=== PATIENT | male | born 1975 | race African-American/Black ===

== ENCOUNTER 2017-07-26 10:56 | Inpatient (IN) | payer OTHER ==
[~2017-07-26] VITALS: Ht 188 cm; Wt 82.7 kg
[2017-07-26 12:19] VITALS: BP 160/98
[2017-07-26 13:54] LABS: ABSOLUTE EOSINOPHILS 0.2 thou/uL (0.0-0.7); ABSOLUTE LYMPHOCYTES 1.5 thou/uL (0.8-5.3); ABSOLUTE MONOCYTES 0.8 thou/uL (0.0-1.2); ABSOLUTE NEUTROPHILS 7.7 thou/uL (1.6-8.1); BASOPHILS 0.3 %; EOSINOPHILS 1.5 %; HEMATOCRIT 39.3 % (42.0-52.0); HEMOGLOBIN 12.8 gm/dL (14.0-18.0); LYMPHOCYTES 14.8 %; MCH 27.7 pg (26.0-34.0); MCHC 32.6 g/dL (28.0-37.0); MPV 9.3 fl. (7.2-11.1); NUCLEATED RBCS 0 /100WBC; PLATELET COUNT* 359 thou/uL (150-400); POLYS 75.4 %; RBC 4.62 mil/uL (4.50-6.00); RDW-CV 12.8 % (10.5-14.5); WBC 10.2 thou/uL (4.0-11.0)
[2017-07-26 14:04] LABS: APTT 32.7 Seconds (25.0-31.3); PROTIME 9.4 Seconds (9.20-11.50)
[2017-07-26 14:07] LABS: CALCIUM 9.5 mg/dL (8.5-10.1); POTASSIUM 4.9 mmol/L (3.5-5.1); TOTAL BILIRUBIN 0.4 mg/dL (<0.1-1.0); TOTAL PROTEIN 8.2 g/dL (6.4-8.2)
[2017-07-26 14:52] LABS: ESR (SEDRATE) 80 mm/hr (0-15)
--- NOTE | 2017-07-26 15:24 | NUR ---
WOUND CARE NOTE: CONSULT RECEIVED FOR LEFT FOOT WOUND. PATIENT PRESENTS WITH A FULL THICKNESS ULCERATION TO THE RIGHT FOOT. LATERAL/PLANTAR SURFACE. WOUND MEASURES 1.5X1.5X1. FOUL ODOR NOTED. ZORAIDA-WOUND IS MACERATED. WOUND BED WITH 100% YELLOW SLOUGH, ADHERENT. 2+ PEDAL PULSES. WOUND CLEANSED WITH WOUND CLEANSER, PATTED DRY. PACKED WITH AQUACEL AG AND COVERED WITH ABD. SECURED WITH KERLIX. PATIENT TOLERATED DRESSING CHANGE WELL. EDUCATED ON IMPORTANCE OF KEEPING BLOOD SUGAR CONTROLLED, PATIENT STATES HIS BLOOD SUGAR IS UP AND DOWN. EDUCATED ON IMPORTANCE OF NUTRITION FOR WOUND HEALING, COMMUNICATED UNDERSTANDING. EDUCATED ON KEEPING OFF FOOT, COMMUNICATED UNDERSTANDING. EDUCATED ON DRESSING SELECTION, COMMUNICATED UNDERSTANDING. RECOMMEND TIGHT BLOOD GLUCOSE CONTROL OFFLOAD WOUND, HEEL WEIGHT BEARING FOR TRANSFERS ONLY ENCOURAGE GOOD NUTRITION AND HYDRATION DAILY DRESSING CHANGES
--- NOTE | 2017-07-26 16:14 | NUR ---
PATIENT DIRECT ADMIT FROM DR. GREEN'S PODIATRY OFFICE. ALERT AND ORIENTED X 4. PATIENT POOR HISTORIAN FOR MEDICATIONS AND MEDICAL HISTORY. IV PLACED IN INFUSION TO RIGHT AC, LABS RETRIEIVED WHILE IN INFUSION. PHOTO TAKEN OF LEFT FOOT WOUND, DRESSING PLACED PER WOUND CARE. CULTURES OBTAINED PER ORDERS. PATIENT DID SHOWER UPON ARRIVAL.PATIENT NPO AFTER MIDNIGHT FOR ANY IMPENDING PROCEDURES. IV ABX INFUSING ORDERED. ORIENTED TO CALL LIGHT, CALL LIGHT WITHIN REACH. WILL CONTINUE TO MONITOR.
[2017-07-26] MEDS ORDERED: LANTUS100 UNIT/M SUBQ (16:53)
[2017-07-26] MEDS ORDERED: HUMALOG100 UNIT/1 SUBQ (16:53)
[2017-07-26 16:57] VITALS: BP 138/98
[2017-07-26 20:20] VITALS: BP 146/95
--- NOTE | 2017-07-27 05:07 | NUR ---
PT SLEPT MOST OF SHIFT. ASSESSMENT DOCUMENTED. MEDS GIVEN PER E-MAY. IV PATENT. PT STATED LEFT FOOT STARTED HURTING, TRAMADOL GIVEN PER E-MAR. PT STATED NO RELIEF, NOTIFIED, ALTERNATIVE PAIN MEDICATION ORDERS RECIEVED. PT REMAINED NPO AFTER 0000. EKG COMPLETED. PREOP CHECKLIST IN CHART. WILL CONTINUE WITH PLAN OF CARE.
[2017-07-27 05:42] VITALS: BP 132/83
[2017-07-27 06:35] VITALS: BP 132/83
[2017-07-27 09:45] VITALS: BP 133/88
--- NOTE | 2017-07-27 11:31 | EKG ---
[place] [address] ELECTROCARDIOGRAM REPORT Name: MARCI FUENTES Room: [address] ADM IN M.R.#: [id number] Admission: 07/26/17 Attend Phys: Marci Patterson MD Discharge: Date of : 73 Report #: [id number] THIS REPORT FOR: //name// [facility] Test Date: 2017-07-26 Test Time: 22:10:16 Pat Name: MARCI FUENTES Department: Room: [address] Gender: M Kit Assembler: BARBARA : 1975 Requested By: Chris Bray Order Number: [id number] Anayeli MD: Dominic Monsivais Measurements Intervals [place] Rate: 113 P: 62 MA: 156 QRS: 30 QRSD: 84 T: 47 QT: 336 QTc: 461 Interpretive Statements Sinus tachycardia Probable anteroseptal infarct, old Minimal ST elevation, inferior leads No previous ECG available for comparison Electronically Signed On 07-27-2017 11:31:44 CDT by Dominic Monsivais [email or web address] <ELECTRONICALLY SIGNED> By: Dominic Monsivais MD, [facility] 07/27/17 1131 09 09 Dominic Monsivais MD, FACC /EPI
[2017-07-27 15:07] LABS: GLYCOHEMOGLOBIN (HGB A1C) 11.3 % (4.8-5.6)
--- NOTE | 2017-07-27 16:13 | NUR ---
PT.IN SURGERY THIS AM. NOW GETTING PICC LINE. CULTURES PENDING. FAXED FACE SHEET AND MED LIST TO [facility] [phone] TO CHECK INSURANCE BENEFITS FOR IVAB AND LEFT MESSAGE ON [phone].
--- NOTE | 2017-07-27 16:18 | NUR ---
PATIENT HAD LEFT 5TH METATARSAL AND TOE AMPUTATION THIS AM. VITALS STABLE UPON RETURN. INSULIN GIVEN WITH MEALS WHEN REQUIRED. PRN MORPHINE AND VICODIN GIVEN PER FOR PAIN. LEFT FOOT DRESSING INTACT AND ELEVATED ORDERED. IV ABX INFUSED ORDERED. PICC LINE ORDERED THIS AM AND BEING PLACED AT THIS TIME IN INFUSION. PATIENT TRANSFERRED DOWN TO ROOM 101. REPORT GIVEN TO [facility].
--- NOTE | 2017-07-27 16:50 | NUR ---
CONSULTED TO PLACE PICC FOR NURSE LICENSED PRACTICAL ATB FOR FOOT INFECTION. ORDER AND CONSENT NOTED. SPOKE WITH PT ABOUT RISK AND BENNIF[place]. VOICED UNDERSTANDING AND AGREED. RIGHT UPPER ARMM NOTED TO HAVE IV THAT WAS SWOLLEN AND RED WITH SKIN TIGHT. IV REMOVED. ASSESSED ARM ABOVE INFILTRATION. ATTEMPT TO PLACE PICC UNSUCCESSFUL. LEFT UPPER ARM ASSESSED AND LEFT BASILIC VEIN IDENTIFIED AND NOTED TO BE WIDLEY PATENT. SINGLE LUMAN 4FR POWER PICC PLACED PER HOSPITAL POLICY. PICC TRIMMED AT 48CM AND ADVANCED TO 45CM LEAVING 3CM EXTERNAL. LINE CLEARED WITH SHERLOCK 3CG, SECURED AND RELEASED FOR IMMEDIATE USE. PRIMARY NURSING AWARE.
--- NOTE | 2017-07-27 18:36 | NUR ---
RECEIVED PATIENT THIS EVENING S/P PICC LINE PLACEMENT TO LEFT UPPER ARM. AGREE WITH PRIOR ASSESSMENT, NO ACUTE DISTRESS, TOLERATING DIET WELL, GLUCOSE MANAGED WITH INSULIN, MARYANNE IV ABT WITHOUT ADR NOTED. LEFT FOOT WOUND SITE WITH DRESSING C/D/I. CALL LIGHT IN REACH, FAMILY AT BEDSIDE, CONT POC.
[2017-07-27 21:35] VITALS: BP 106/70
[2017-07-27 23:45] VITALS: BP 109/63
[2017-07-28 03:45] VITALS: BP 109/63
--- NOTE | 2017-07-28 05:07 | NUR ---
PATIENT ALERT AND ORIENTED. VITALS STABLE. RA. DENIES THE NEED FOR PAIN MEDICATION DURING MY SHIFT. VOMITED X 1, NOT SEEN BE NURSE, ZOFRAN GIVEN WHICH WAS EFFECTIVE. LEFT FOOT DRESSING C/D/I, ELEVATED ON PILLOW. NO SIGNS OF ANY ADVERSE REACTIONS TO ANTIBIOTIC THERAPY. HOURLY ROUNDS. BED ALARM IN USE. NURSING WILL CONTINUE TO MONITOR.
[2017-07-28 08:00] VITALS: BP 113/65
--- NOTE | 2017-07-28 09:25 | CON ---
[address] [address] CONSULTATION Name: MARCI FUENTES Room: [address] IN ..#: [id number] Admission: 07/26/17 Attend Phys: Marci Patterson MD Discharge: Date of : 73 Report #: [id number] THIS REPORT FOR: //name// CC: Chris Patterson NO PCP DATE OF SERVICE: 07/27/2017 INFECTIOUS DISEASE CONSULTATION ATTENDING PHYSICIAN: Dr. Grider. REASON FOR EVALUATION: Left foot osteomyelitis involving the fifth metatarsal. HISTORY OF PRESENT ILLNESS: Chart reviewed, patient examined. This 41-year-old gentleman with diabetes mellitus type 2, although he is insulin requiring, diagnosed roughly 20 years ago, not clear if he has complications related to peripheral neuropathy, although he has had previous fifth toe amputation due to chronic infection. Over the course of the last 2-3 weeks, he had increasing inflammation noted at the site, had some blood sugar variability, preop suggested osteomyelitis. He has returned and seen postop. Cultures are pending. Gram stain did show gram-positive cocci on previous culture, awaiting growth perhaps ID and susceptibility. He has noted some weight loss that he cannot account for the last couple of months. He denies significant pulmonary or gastrointestinal related complaints. He does admit to some anorexia. ALLERGIES: None known. CURRENT MEDICATIONS: Include hydrocodone, morphine, lisinopril, vancomycin, insulin and Zosyn. PAST MEDICAL HISTORY: Diabetes mellitus type 2 diagnosed 20 years ago, insulin requiring and hypertension. SOCIAL HISTORY: Nonsmoker, no ethanol and no illicit drug use. FAMILY HISTORY: Noncontributory. REVIEW OF SYSTEMS: As above. PHYSICAL EXAMINATION: GENERAL: Pleasant, alert, mildly diminished affect, is in mild distress. VITAL SIGNS: Temperature 98, pulse 87, respirations 19, blood pressure 132/83. SKIN: Warm, dry, no rashes. HEENT: Otherwise, [place] [address] CONSULTATION Name: MARCI FUENTES Room: [address]#: [id number] Admission: 07/26/17 Attend Phys: Marci Patterson MD Discharge: Date of : 73 Report #: [id number] NECK: Supple. LUNGS: Clear breath sounds. HEART: Regular. I do not appreciate a murmur. ABDOMEN: Soft, nontender and nondistended. Operative dressing in place. LABORATORY DATA: Blood cultures sterile thus far. Preop x-ray of the left foot showed destructive change of the fifth metatarsal head and proximal fifth phalanx consistent with osteomyelitis. Gram stain showed gram-positive cocci in moderate amounts. Cultures are pending. CBC: White count of 10.2, H and H 12.8 and 39.3 and platelets of 359. Sed rate of 80. CRP of 134.8. ASSESSMENT: Osteomyelitis involving the left foot in a patient with longstanding diabetes mellitus, previous issues with deep foot infections. Certainly, the evidence favors osteomyelitis diagnosis. We will continue empiric therapy, ideally pair down to a single agent on discharge. Will likely need long-term parenteral therapy. We will await pathology results as well. Discussed about his weight loss. It is not clear to me precisely and may need additional workup. <ELECTRONICALLY SIGNED> By: Rogers Guzman MD 07/28/17 0925 1040 [id number] Guzman MD /nt
[2017-07-28 16:06] VITALS: BP 107/70
--- NOTE | 2017-07-28 18:32 | NUR ---
RESUMED CARE THIS AM. DISCOMFORT MANAGED WELL WITH ORAL MEDICATION. GLUCOSE MANAGED WELL WITH INSULIN AND DIET. TURNED FROM SIDE TO SIDE FREQUENTLY. DRESSING TO LEFT FOOT C/D/I. CALL LIGHT IN REACH, COMPLIANT WITH MEDICATION AND CARES, CONT POC.
[2017-07-28 21:45] VITALS: BP 138/84
[2017-07-28 23:48] VITALS: BP 135/77
[2017-07-29 03:22] VITALS: BP 145/95
[2017-07-29 04:33] LABS: HEMATOCRIT 33.1 % (42.0-52.0); HEMOGLOBIN 10.9 gm/dL (14.0-18.0); MCH 27.9 pg (26.0-34.0); MCHC 32.9 g/dL (28.0-37.0); MCV 84.8 fL (80.0-100.0); MPV 8.8 fl. (7.2-11.1); RBC 3.9 mil/uL (4.50-6.00); WBC 7.2 thou/uL (4.0-11.0)
--- NOTE | 2017-07-29 04:40 | NUR ---
PATIENT ALERT AND ORIENTED. VITALS STABLE. RA. LEFT FOOT DRESSING C/D/I. REPOSITIONS SELF IN BED, BEDREST. ANTIBIOTICS INFUSING WITHOUT DIFFICULTY. DENIES THE NEED FOR PAIN MEDICATION. SLEPT COMFORTABLY THROUGH THE NIGHT. HOURLY ROUNDS. BED ALARM IN USE. NURSING WILL CONTINUE TO MONITOR.
[2017-07-29 04:50] LABS: CALCIUM 8.1 mg/dL (8.5-10.1); CREATININE 0.8 mg/dL (0.6-1.3); MAGNESIUM 1.8 mg/dL (1.8-2.4); POTASSIUM 4.1 mmol/L (3.5-5.1)
[2017-07-29 08:00] VITALS: BP 136/88
[2017-07-29 16:08] VITALS: BP 163/98
--- NOTE | 2017-07-29 18:35 | NUR ---
RESUMED CARE THIS AM. NO ACUTE DISTRESS, DENIES DISCOMFORT, TURNED FROM SIDE TO SIDE HOURLY, MARYANNE IV ABT WITHOUT ADR, GLUCOSE MANAGED WITH INSULIN, DSG TO LEFT FOOT C/D/I. CALL LIGHT IN REACH, CONT POC.
[2017-07-29 20:50] VITALS: BP 148/90
[2017-07-30] VITALS (7 sets, daily range): BP systolic 154–168; BP diastolic 91–95
--- NOTE | 2017-07-30 04:51 | NUR ---
PATIENT ALERT AND ORIENTED. VITALS STABLE. RA. DENIES THE NEED FOR PAIN MEDICATION. DENIES NAUSEA. LEFT FOOT ELEVATED ON PILLOW. DRESSING C/D/I. ANTIBIOTICS INFUSE WITHOUT DIFFICULTY, OTHERWISE SALINE LOCKED. HOURLY ROUNDS. BED ALARM IN USE. NURSING WILL CONTINUE TO MONITOR.
[2017-07-30] MEDS ORDERED: IBUPROFEN 800800 M1 PO (15:02)
[2017-07-30] MEDS ORDERED: PRINIVIL10 MG PO (15:02)
[2017-07-30] MEDS ORDERED: LANTUS100 UNIT/M SUBQ (15:02)
--- NOTE | 2017-07-30 17:03 | NUR ---
PT.TO BE DISCHARGED TODAY WITH HOME HEALTH AND IVAB. DISCUSSED WITH HIM. HE LIVES ALONE. BROTHER,KEYUR IS SUPPORTIVE. BROTHER ASSISTED PT.WITH IVAB AT HOME BEFORE,PT.STATED. PT.CANNOT REMEMBER NAME OF HOME HEALTH AGENCY. HE SAID HE IS NORMALLY INDEPENDENT AT HOME. WORKS XRAY TECH. QUESTION COMPLIANCE OF PT. CM HAD MADE REFERRAL TO [facility] ON SUNDAY. CALLED THEM TO FIND OUT PT.'S BENEFITS. DISCUSSED WITH PT. HE CALLED BROTHER AND CM SPOKE WITH HIM. HE IS AGREEABLE TO HELP AGAIN WITH HIS IVAB. HE SAID THE PREFERRED TIME WOULD BE 8AM AND 8PM. HE WILL NOT BE ABLE TO BE HERE TODAY FOR [facility] TEACHING. PT.CHOSE [facility] FOR HOME HEALTH. REFERRAL MADE. FAXED DISCHARGE SUMMARY,H&P,OP REPORT,FACE SHEET AND 'S ORDERS TO [facility]. [facility] CALLING TO GET PT.ON MORE AGREEABLE Q 12 HR SCHEDULE AND CALLING FOR DRESSING CHANGE ORDERS. [facility] WILL BE AT PT.'S HOME AT 8AM IN THE MORNING FOR FIRST DOSE OF IVAB. FAXED [facility] FINAL ORDERS FROM EARLIER IN THE DAY. [facility] CAME OUT TO DO SOME INITIAL TEACHING WITH PT.
--- NOTE | 2017-07-30 18:24 | NUR ---
PATIENT IS ALERT AND ORIENTED TODAY VERY PLEASANT. UP WITH WALKER, GAIT BELT AND LIMITED WEIGHT BEARING TO LEFT FOOT. NO COMPLAINTS OF PAIN TODAY. PICC IN UPPER LEFT ARM WORKS WELL WITH IV ANTIBIOTICS. PATIENT IS BEING DISCHARGED TO HOME WITH HOME HEALTH. FOOT BANDAGE WAS CHANGED BY PHYSCIAN TODAY AT BEDSIDE PRIOR TO DISCHARGE. PRESCRIPTIONS CALLED IN TO PHARMACY ON FILE, DISCHARGE INSTRUCTION GIVEN AND QUESTIONS ANSWERED FOR PATIENT AMD BROTHER. LEFT VIA WHEELCHAIR WITH BROTHER TO HOME.
--- NOTE | 2017-08-13 17:24 | OP ---
[address] [address] OPERATIVE REPORT Name: MARCI FUENTES Room: [address] IN ..#: [id number] Admission: 07/26/17 Attend Phys: Marci Patterson MD Discharge: 07/30/17 Date of : 73 Report #: [id number] THIS REPORT FOR: //name// CC: Chris Patterson NO PCP DATE OF SERVICE: 07/27/2017 SURGEON: Chris Bray DPM. PREOPERATIVE DIAGNOSIS: Osteomyelitis, fifth metatarsal, left. POSTOPERATIVE DIAGNOSIS: Osteomyelitis, fifth metatarsal, left. PROCEDURE: Resection of fifth ray, left foot. ANESTHESIA: General anesthetic with local anesthetic block. ESTIMATED BLOOD LOSS: Minimal. COMPLICATIONS: None apparent. DESCRIPTION OF PROCEDURE: The patient was taken to the OR and placed on the table in supine position. Following a general inhalation anesthetic administered by the Anesthesia Department, a local anesthetic block was performed about the left foot and ankle using a 50:50 mixture of 1% lidocaine plain and 0.5% Marcaine plain. The left foot was then prepped and draped in the usual aseptic technique. The foot was exsanguinated using an Esmarch bandage and the pneumatic ankle tourniquet was raised to approximately 250 mmHg. Attention was then directed to the lateral aspect of the left foot, where a diabetic ulceration was noted along the plantar lateral aspect of the foot. A racquet-shaped incision was placed over the fifth toe to encompass it and extended proximally to encompass the diabetic ulceration. The incision was then deepened down to osseous structures. Bleeders were cauterized as necessary. Tendinous structures were transected. There was a significant bony destruction noted in the base of the proximal phalanx of the fifth toe as well as the head of the metatarsal. The fifth toe was disarticulated. Dissection was then carried proximally to expose the proximal one-third of the fifth metatarsal. A sagittal saw was then used to transect the fifth metatarsal. This was resected in toto. Bone cultures were sent as well as the metatarsal was sent to pathology. The wound was then debrided of necrotic tissue. The wound was flushed with copious amounts of bacitracin solution. The wound was examined and no additional necrotic tissue was identified. Wound margins were then reapproximated using simple interrupted sutures of 3-0 nylon[place] [address] OPERATIVE REPORT Name: MARCI FUENTES Room: [address] IN [facility].#: [id number] Admission: 07/26/17 Attend Phys: Marci Patterson MD Discharge: 07/30/17 Date of : 73 Report #: [id number] with Silver was then used as a drain at the proximal aspect of the incision. The incision was then covered with Betadine-impregnated Adaptic, followed by a mildly compressive bandage. The pneumatic tourniquet was released and all signs of normal blood flow returned to the digits. The patient seemed to tolerate these procedures well and left the OR in stable condition via stretcher, accompanied by the Anesthesia Department. The patient will be given usual postoperative instructions. He will be returned to the floor for intravenous antibiotics as well as blood sugar control. <ELECTRONICALLY SIGNED> By: Chris Bray DPM 08/13/17 1724 0909 [id number] Oscar Bray DPM /juancho
--- NOTE | 2017-08-13 17:24 | CON ---
[address] [address] CONSULTATION Name: MARCI FUENTES Room: [address]#: [id number] Admission: 07/26/17 Attend Phys: Marci Patterson MD Discharge: 07/30/17 Date of : 73 Report #: [id number] THIS REPORT FOR: //name// CC: Chris Patterson NO PCP DATE OF SERVICE: 07/26/2017 HISTORY OF PRESENT ILLNESS: This is a 41-year-old male who recently presented to my office with the wound on the bottom of his left foot. The patient has a history of diabetes mellitus. He has had a previous surgery on his foot for diabetic ulceration. The patient had undergone an MRI on the left foot, which showed osteomyelitis in the fifth metatarsal head as well as the base of the proximal phalanx of the fifth toe. At that time, it was recommended that the patient undergo surgical intervention. He did not pursue this at that time. Yesterday, the patient presented to my office and he had increased cellulitis, swelling and drainage in the left foot. It was recommended that he be admitted at that time. He preferred to wait until today to be admitted. MEDICATIONS: The patient is a poor historian. He is not sure as to what medications he uses. SOCIAL HISTORY: The patient denies illicit drug use. He denies tobacco use. PHYSICAL EXAMINATION: Examination of the patient's left foot shows a full-thickness ulceration beneath the fifth metatarsal head. It probes to bone. Purulent drainage is noted. It is malodorous. Pedal pulses are noted. The patient is unable to feel a 10-gram monofilament. ASSESSMENT: 1. Osteomyelitis, fifth metatarsal, left foot. 2. Diabetes mellitus with neuropathy. PLAN: The need to amputate the fifth ray was discussed with the patient. We will get up-to-date radiographs on his left foot and if there is evidence of additional bony destruction, he may need additional bone removed. The possible complications associated with the procedure were discussed with the patient. This included but was not limited to infection, need for further surgery, loss of foot, loss of leg [place] [address] CONSULTATION Name: MARCI FUENTES Room: [address]#: [id number] Admission: 07/26/17 Attend Phys: Marci Patterson MD Discharge: 07/30/17 Date of : 73 Report #: [id number] The patient indicates he understands the procedure as well as the risks and is willing to proceed with surgical intervention. He is scheduled for surgery on 07/27/2017 at 08:00 hours. <ELECTRONICALLY SIGNED> By: Chris Bray DPM 08/13/17 1724 1751 [id number] Bray DPM /juancho
== END 2017-07-30 18:20 | disposition home health service (06) | DRG 854 ==
LOC: M.3W 10:56 → M.ORTHSURG 07-27 15:43
PROVIDERS: Internal Medicine; Podiatrist; ADMIT Internal Medicine
PROC: 0Y6N0ZF Detachment at Left Foot, Partial 5th Ray, Open Approach (ICD-10-PCS; principal; 2017-07-26)
PROC: 05HC33Z Insertion of Infusion Device into Left Basilic Vein, Percutaneous Approach (ICD-10-PCS; 2017-07-27)
DX: A41.89 Other specified sepsis (principal); M86.9 Osteomyelitis, unspecified; E11.69 Type 2 diabetes mellitus with other specified complication; E11.40 Type 2 diabetes mellitus with diabetic neuropathy, unspecified; L97.529 Non-pressure chronic ulcer of other part of left foot with unspecified severity; E11.621 Type 2 diabetes mellitus with foot ulcer; I10 Essential (primary) hypertension; Z79.4 Long term (current) use of insulin; Z79.899 Other long term (current) drug therapy